=== PATIENT | male | born 1995 | race Caucasian/White ===

== ENCOUNTER → 2023-11-28 | Outpatient (CLI) | payer BC, SELFPAY ==
--- NOTE | 2023-11-28 11:08 | RAD_ITS ---
STUDY: X-RAY EXAMINATION: SCOLIOSIS SERIES REASON FOR EXAM: Male, 28 years old. LUMBAR STRAIN TECHNIQUE: 6 view(s) of the thoracolumbar spine were obtained in the upright standing position. COMPARISON: None. FINDINGS: There is a 16 degree dextroscoliosis of the thoracic spine with the apex of the convexity at the T3/T4 level. There is a 12 degree levoscoliosis of the thoracic spine with the apex of the convexity at the T7 level. There is a 29 degree dextroscoliosis of the thoracic spine with the apex of the convexity at the T9/T10 level. There is a 44 degree levoscoliosis scoliosis of the lumbar spine with the apex of the convexity at the L2 level. Normal kyphosis of the thoracic spine. 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 Normal disc space heights of the thoracic spine. Normal lordosis of the lumbar spine. Normal lumbar vertebrae and endplates. Normal disc space heights of the lumbar spine. The soft tissue structures are unremarkable. 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 Electronically Signed: Curtis Hammonds MD at 16:39 EDT ,
== END | disposition home or self-care (01) ==
LOC: RAD 11:05
PROVIDERS: Referring Provider Chiropractor; Visit Provider Chiropractor
DX: S33.5XXA Sprain of ligaments of lumbar spine, initial encounter (principal)
CPT/HCPCS: 72082